=== PATIENT | female | born 1955 | race Caucasian/White ===

== ENCOUNTER → 2023-12-02 | Day surgery (SDC) | payer BC ==
[~2023-12-02] VITALS: Ht 165.1 cm; Wt 108.9 kg
[~2023-12-02] MED LIST: ASPI-1497 PO; FENTANYL CITRATE/PF 50MCG/ML 2ML VIAL IV PRN; KETOROLAC 30MG/ML VIAL IV ONE; LEVO100T9 PO; LIP40 PO; LOSA50TA41 PO; MIDAZOLAM HCL 2 MG/2 ML VIAL ONE; MULT-622 PO; ONDANSETRON HCL 4MG/2ML INJ IV PRN; PROPOFOL 10MG/ML 100ML 100 ML IV ONE; SODIUM CHLORIDE 0.9% 1,000 ML IV SCH
[2023-12-02] MEDS: LACTATED RINGERS 1,000 ML IV SCH (06:50)
[2023-12-02] MEDS: KETOROLAC 15MG/ML VIAL IV SCH (08:50)
[2023-12-02 10:24] VITALS: BP 125/67; PULSE 58; RESP 17
[2023-12-02] MEDS: HYDROCODONE/ACETAMINOPHEN 5/325MG TABLET PO PRN (10:24)
== END | disposition home or self-care (01) ==
LOC: OR 05:49
PROVIDERS: ATTEND Urology
DX: N20.1 Calculus of ureter (principal); I10 Essential (primary) hypertension; G47.30 Sleep apnea, unspecified; E78.5 Hyperlipidemia, unspecified; E03.9 Hypothyroidism, unspecified; Z79.899 Other long term (current) drug therapy; Z79.82 Long term (current) use of aspirin; Z90.710 Acquired absence of both cervix and uterus; Z98.890 Other specified postprocedural states; Z82.49 Family history of ischemic heart disease and other diseases of the circulatory system; Z83.3 Family history of diabetes mellitus; Z90.49 Acquired absence of other specified parts of digestive tract
CPT/HCPCS: 50590; J1885; J2250; J2704